=== PATIENT | female | born 1955 | race Caucasian/White ===

== ENCOUNTER → 2018-01-30 09:42 | Outpatient (CLI) | payer BC, SELFPAY ==
--- NOTE | 2018-01-30 | DI.RAD.S_ITS ---
PROCEDURE: XR CERVICAL SPINE 2V OR 3V INDICATIONS: LFT SIDE NECK PAIN TECHNIQUE: 3 view(s) of the cervical spine were acquired. COMPARISON: None. FINDINGS: Bones: Loss of normal cervical stenosis. No fractures or dislocations to the C7 level. The lateral masses of C1 appear intact on the odontoid view. No suspicious bony lesions. There is degenerative disc disease, moderate at C6-C7, and mild at C5-C6. Soft tissues: No prevertebral soft tissue swelling. IMPRESSION: 1. Degenerative disc disease in cervical spine. Dictated by: Narciso Ballesteros M.D. on 01/30/2018 at 10:58 Approved by: Narciso Ballesteros M.D. on 01/30/2018 at 11:00
== END ==
PROVIDERS: PCP Nurse Practitioner Family; Visit Provider Nurse Practitioner Family
DX: M50.322 Other cervical disc degeneration at C5-C6 level (principal)
CPT/HCPCS: 72040

== ENCOUNTER → 2018-02-23 14:10 | Outpatient (CLI) | payer BC, SELFPAY | PROVIDERS: PCP Nurse Practitioner Family; Visit Provider Nurse Practitioner Family | DX: M85.851 Other specified disorders of bone density and structure, right thigh (principal); Z78.0 Asymptomatic menopausal state; Z90.722 Acquired absence of ovaries, bilateral; Z85.42 Personal history of malignant neoplasm of other parts of uterus | CPT/HCPCS: 77080 ==

== ENCOUNTER → 2018-04-21 11:55 | Outpatient (CLI) | payer BC, SELFPAY ==
--- NOTE | 2018-04-21 | DI.MG.S_ITS ---
BILATERAL DIGITAL SCREENING MAMMOGRAM 3D/2D WITH CAD: 04/21/2018 CLINICAL: Routine screening. Family history of breast cancer. Comparison is made to exams dated: 11/07/2016 mammogram, 11/07/2015 mammogram, and 10/26/2014 mammogram - [facility] Current study was also evaluated with a Computer Aided Detection (CAD) system. No significant masses, calcifications, or other findings are seen in either breast. There has been no significant interval change. IMPRESSION: NEGATIVE There is no mammographic evidence of malignancy. A 1 year screening mammogram is recommended. This exam was interpreted at Station ID: [id number]. NOTE: For mammograms, a report in lay terms will be sent to the patient. Approximately 15% of breast malignancies will not be visualized mammographically. In the management of a palpable breast mass, a negative mammogram must not discourage biopsy of a clinically suspicious lesion. Electronically Signed By: Tete rosa/foreign:04/21/2018 15:48:15 letter sent: Normal Exam ACR BI-RADS Category 1: Negative 3341F
== END ==
PROVIDERS: PCP Nurse Practitioner Family; Visit Provider Nurse Practitioner Family
DX: Z12.31 Encounter for screening mammogram for malignant neoplasm of breast (principal); Z80.3 Family history of malignant neoplasm of breast
CPT/HCPCS: 77063; 77067

== ENCOUNTER → 2019-04-20 15:17 | Outpatient (CLI) | payer BC, SELFPAY ==
--- NOTE | 2019-04-20 | DI.RAD.S_ITS ---
PROCEDURE: XR ANKLE RT MIN 3V INDICATIONS: right akle pain TECHNIQUE: 3 views of the ankle were acquired. COMPARISON: None. FINDINGS: Bones: No fractures or dislocations. Ankle mortise is normally aligned. No suspicious bony lesions. Mild tibiotalar and mid foot joint narrowing with para-articular osteophyte formation. Soft tissues: No tibiotalar joint effusion. Achilles tendon appears normal. IMPRESSION: No acute fracture. No osseous lesion. If clinical suspicion and/orsymptoms persist, further assessment with repeat plainfilms, or advanced imaging (e.g., CT, MRI, or bone scan) may be helpful for further assessment. Dictated by: Lico WINTERS Interpreted: Kinsey Simmons MD on 04/20/2019 at 17:45 Approved by: Kinsey Simmons M.D. on 04/20/2019 at 18:38
--- NOTE | 2019-04-20 | DI.RAD.S_ITS ---
PROCEDURE: XR KNEE LT 3V INDICATIONS: left knee pain TECHNIQUE: 3 views of the knee were acquired. COMPARISON: None. FINDINGS: Bones: No fractures or dislocations. No suspicious bony lesions. Tricompartmental periarticular osteophyte formation. Soft tissues: No joint effusion. No suspicious soft tissue calcifications. IMPRESSION: Mild tricompartmental knee joint degeneration. Dictated by: Lico WINTERS Interpreted: Kinsey Simmons MD on 04/20/2019 at 17:45 Approved by: Kinsey Simmons M.D. on 04/20/2019 at 18:38
--- NOTE | 2019-04-20 | DI.RAD.S_ITS ---
PROCEDURE: XR KNEE RT 3V INDICATIONS: right knee pain TECHNIQUE: 3 views of the knee were acquired. COMPARISON: None. FINDINGS: Bones: No fractures or dislocations. No suspicious bony lesions. Tricompartmental periarticular osteophyte formation. Soft tissues: Small joint effusion. No suspicious soft tissue calcifications. IMPRESSION: Mild tricompartmental knee joint degeneration. Dictated by: Lico WINTERS Interpreted: Kinsey Simmons MD on 04/20/2019 at 17:46 Approved by: Kinsey Simmons M.D. on 04/20/2019 at 18:38
== END ==
PROVIDERS: PCP Nurse Practitioner Family; Visit Provider Nurse Practitioner Family
DX: M25.561 Pain in right knee (principal); M25.562 Pain in left knee; M17.0 Bilateral primary osteoarthritis of knee; M25.571 Pain in right ankle and joints of right foot
CPT/HCPCS: 73562; 73610

== ENCOUNTER → 2019-05-07 11:50 | Outpatient (CLI) | payer BC, SELFPAY ==
--- NOTE | 2019-05-07 | DI.MG.S_ITS ---
BILATERAL DIGITAL SCREENING MAMMOGRAM 3D/2D WITH CAD: 05/07/2019 CLINICAL: Routine screening. Family history of breast cancer. Comparison is made to exams dated: 04/21/2018 mammogram - [facility], 11/07/2016 mammogram, and 11/07/2015 mammogram - [facility] Current study was also evaluated with a Computer Aided Detection (CAD) system. There are benign calcifications in both breasts. There also is a biopsy clip in the left breast. No significant masses, calcifications, or other findings are seen in either breast. There has been no significant interval change. IMPRESSION: There is no mammographic evidence of malignancy. A 1 year screening mammogram is recommended. This exam was interpreted at Station ID: [id number]. NOTE: For mammograms, a report in lay terms will be sent to the patient. Approximately 15% of breast malignancies will not be visualized mammographically. In the management of a palpable breast mass, a negative mammogram must not discourage biopsy of a clinically suspicious lesion. Electronically Signed By: Addison perez/foreign:05/07/2019 13:09:27 letter sent: Normal Exam ACR BI-RADS Category 2: Benign Finding(s) 3342F
== END ==
PROVIDERS: PCP Nurse Practitioner Family; Visit Provider Nurse Practitioner Family
DX: Z12.31 Encounter for screening mammogram for malignant neoplasm of breast (principal); Z80.3 Family history of malignant neoplasm of breast
CPT/HCPCS: 77063; 77067

== ENCOUNTER → 2020-05-31 16:44 | Outpatient (CLI) | payer BC, MEDICARE, SELFPAY ==
--- NOTE | 2020-05-31 16:48 | DI.MG.S_ITS ---
BILATERAL DIGITAL SCREENING MAMMOGRAM 3D/2D WITH CAD: 05/31/2020 CLINICAL: Routine screening. Family history of breast cancer. Comparison is made to exams dated: 05/07/2019 mammogram, 04/21/2018 mammogram - [facility], and 11/07/2016 mammogram - [facility] Current study was also evaluated with a Computer Aided Detection (CAD) system. There are benign calcifications in both breasts. There also is a biopsy clip in the left breast. No significant masses, calcifications, or other findings are seen in either breast. There has been no significant interval change. IMPRESSION: BENIGN There is no mammographic evidence of malignancy. A 1 year screening mammogram is recommended. This exam was interpreted at Station ID: [id number]. NOTE: For mammograms, a report in lay terms will be sent to the patient. Approximately 15% of breast malignancies will not be visualized mammographically. In the management of a palpable breast mass, a negative mammogram must not discourage biopsy of a clinically suspicious lesion. Electronically Signed By: Aleks simon/foreign:06/01/2020 07:37:43 letter sent: Normal Exam ACR BI-RADS Category 2: Benign Finding(s) 3342F
== END ==
PROVIDERS: PCP Nurse Practitioner Family; Referring Provider Internal Medicine; Visit Provider Internal Medicine
DX: Z12.31 Encounter for screening mammogram for malignant neoplasm of breast (principal); Z80.3 Family history of malignant neoplasm of breast
CPT/HCPCS: 77063; 77067

== ENCOUNTER → 2021-01-05 09:15 | Outpatient (CLI) | payer MEDICARE, BC, SELFPAY ==
--- NOTE | 2021-01-05 | DI.RAD.S_ITS ---
PROCEDURE: XR HIP W PEL IF DONE RT 2V INDICATIONS: RIGHT HIP AND RIGHT KNEE PAIN TECHNIQUE: AP pelvis with lateral view(s) of the right hip(s). COMPARISON: None. FINDINGS: Bones: [id number] bilateral hip joint osteoarthritic changes are seen more prominent on the right side. No evidence of avascular necrosis of femoral head. No fractures or dislocations. Pelvic ring appears intact. No suspicious bony lesions. Degenerative disc disease in visualized lower lumbar spine is seen. Soft tissues: The visualized bowel gas pattern is normal. No suspicious soft tissue calcifications. IMPRESSION: Right worse than left bilateral hip joint osteoarthritis. No fracture or dislocation. No evidence of avascular necrosis. Dictated by: Sumit Arnold M.D. on 01/05/2021 at 10:56 Approved by: Sumit Arnold M.D. on 01/05/2021 at 10:56
--- NOTE | 2021-01-05 | DI.RAD.S_ITS ---
PROCEDURE: XR KNEE RT 3V INDICATIONS: RIGHT HIP AND RIGHT KNEE PAIN TECHNIQUE: 3 views of the knee were acquired. COMPARISON: [facility], CR, XR KNEE LT 3V, 04/20/2019, 15:25. FINDINGS: Bones: No fractures or dislocations. No suspicious bony lesions. Mild narrowing of the medial femorotibial joints bilaterally and tricompartmental periarticular osteophyte formation. Soft tissues: Small right joint effusion. No suspicious soft tissue calcifications. IMPRESSION: Bilateral knee joint degeneration, most notably involving the medial femorotibial joints. Dictated by: Lico Navarro [facility] Interpreted: Sumit Arnold MD on 01/05/2021 at 13:07 Transcribed by: SP on 01/05/2021 at 13:08 Approved by: Sumit Arnold M.D. on 01/05/2021 at 16:02
== END ==
PROVIDERS: PCP Internal Medicine; Referring Provider Internal Medicine; Visit Provider Internal Medicine
DX: M25.551 Pain in right hip (principal); M25.561 Pain in right knee; M16.0 Bilateral primary osteoarthritis of hip; M17.0 Bilateral primary osteoarthritis of knee
CPT/HCPCS: 73502; 73562

== ENCOUNTER → 2021-07-11 09:59 | Outpatient (CLI) | payer MEDICARE, BC, SELFPAY ==
--- NOTE | 2021-07-11 | DI.MG.S_ITS ---
BILATERAL DIGITAL SCREENING MAMMOGRAM 3D/2D WITH CAD: 07/11/2021 CLINICAL: Routine screening. Family history of breast cancer. Comparison is made to exams dated: 05/31/2020 mammogram, 05/07/2019 mammogram, 04/21/2018 mammogram - [facility], and 11/07/2016 mammogram - [facility] Current study was also evaluated with a Computer Aided Detection (CAD) system. There are benign calcifications in both breasts. No significant masses, calcifications, or other findings are seen in either breast. There has been no significant interval change. IMPRESSION: BENIGN There is no mammographic evidence of malignancy. A 1 year screening mammogram is recommended. This exam was interpreted at Station ID: [id number]. NOTE: For mammograms, a report in lay terms will be sent to the patient. Approximately 15% of breast malignancies will not be visualized mammographically. In the management of a palpable breast mass, a negative mammogram must not discourage biopsy of a clinically suspicious lesion. Electronically Signed By: Jared resendiz/foreign:07/11/2021 18:47:51 letter sent: Normal Exam ACR BI-RADS Category 2: Benign Finding(s) 3342F
== END ==
PROVIDERS: PCP Internal Medicine; Referring Provider Internal Medicine; Visit Provider Internal Medicine
DX: Z12.31 Encounter for screening mammogram for malignant neoplasm of breast (principal); Z80.3 Family history of malignant neoplasm of breast; Z78.0 Asymptomatic menopausal state; M85.851 Other specified disorders of bone density and structure, right thigh
CPT/HCPCS: 77063; 77067; 77080

== ENCOUNTER → 2022-02-04 14:33 | Outpatient (CLI) | payer MEDICARE, BC, SELFPAY ==
--- NOTE | 2022-02-04 | DI.RAD.S_ITS ---
PROCEDURE: XR WRIST RT MIN 3V INDICATIONS: RIGHT WRIST PAIN TECHNIQUE: Four views of the wrist were acquired. COMPARISON: None. FINDINGS: Bones: Degenerative changes of the 1st carpometacarpal joint and triscaphe joint consistent with osteoarthritis. No fractures or dislocations. No suspicious bony lesions. Scaphoid view: No fracture Soft tissues: No suspicious soft tissue calcifications. IMPRESSION: Degenerative changes of the 1st carpometacarpal joint and triscaphe joint consistent with osteoarthritis. Dictated by: Daljit Costa M.D. on 02/04/2022 at 15:01 Approved by: Daljit Costa M.D. on 02/04/2022 at 15:04
== END ==
PROVIDERS: PCP Internal Medicine; Referring Provider Internal Medicine; Visit Provider Internal Medicine
DX: M25.531 Pain in right wrist (principal)
CPT/HCPCS: 73110

== ENCOUNTER → 2022-08-21 08:03 | Outpatient (CLI) | payer MEDICARE, BC, SELFPAY ==
--- NOTE | 2022-08-21 | DI.MG.S_ITS ---
BILATERAL DIGITAL SCREENING MAMMOGRAM 3D/2D WITH CAD: 08/21/2022 CLINICAL: Routine screening. Family history of breast cancer. Comparison is made to exams dated: 07/11/2021 mammogram, 05/31/2020 mammogram, and 05/07/2019 mammogram - [facility]. There are scattered areas of fibroglandular density in both breasts (category b / 25%-50% glandular tissue). Current study was also evaluated with a Computer Aided Detection (CAD) system. There are benign calcifications in both breasts. No significant masses, calcifications, or other findings are seen in either breast. There has been no significant interval change. IMPRESSION: BENIGN There is no mammographic evidence of malignancy. A 1 year screening mammogram is recommended. Based on the Tyrer Cuzick model (a risk assessment model) the patient's lifetime risk is 7.1% and her 10 year risk is 3.7%. According to the ACR, ACS, and NCCN guidelines, an annual breast MRI exam along with mammogram is recommended if the patient's lifetime risk is 20% or greater. This exam was interpreted at Station ID: [id number]. NOTE: For mammograms, a report in lay terms will be sent to the patient. Approximately 15% of breast malignancies will not be visualized mammographically. In the management of a palpable breast mass, a negative mammogram must not discourage biopsy of a clinically suspicious lesion. Electronically Signed By: Tete rosa/foreign:08/21/2022 16:23:00 letter sent: Normal Exam ACR BI-RADS Category 2: Benign Finding(s) 3342F
== END ==
PROVIDERS: PCP Internal Medicine; Referring Provider Internal Medicine; Visit Provider Internal Medicine
DX: Z12.31 Encounter for screening mammogram for malignant neoplasm of breast (principal); Z80.3 Family history of malignant neoplasm of breast
CPT/HCPCS: 77063; 77067

== ENCOUNTER → 2022-11-04 16:42 | Outpatient (CLI) | payer MEDICARE, BC, SELFPAY ==
--- NOTE | 2022-11-04 | DI.US.S_ITS ---
PROCEDURE: US ABDOMEN LIMITED INDICATIONS: ELEVATED LIVER FUNCTION TESTS TECHNIQUE: Real-time scanning was performed of the abdominal and retroperitoneal organs, with image documentation. COMPARISON: None. FINDINGS: Liver: Liver is normal in size . Increased liver parenchymal echotexture is seen. Main portal vein is patent and show normal hepatopetal flow. Gallbladder: Gallbladder is within normal limits. Biliary ducts: Intrahepatic bile ducts are non-dilated. Extrahepatic bile duct caliber measures 3.8 mm. Normal is 6-7 mm or less in diameter, or 10 mm or less post-cholecystectomy. Pancreas: Visualized portions of the pancreas are sonographically normal. Miscellaneous: No free abdominal fluid. IMPRESSION: Hepatic steatosis. Rest of the exam is unremarkable. Dictated by: Sumit Arnold M.D. on 11/05/2022 at 12:15 Approved by: Sumit Arnold M.D. on 11/05/2022 at 12:16
== END ==
PROVIDERS: PCP Internal Medicine; Referring Provider Internal Medicine; Visit Provider Internal Medicine
DX: K76.0 Fatty (change of) liver, not elsewhere classified (principal); R79.89 Other specified abnormal findings of blood chemistry
CPT/HCPCS: 76705

== ENCOUNTER 2023-06-30 08:44 | Emergency (ER) | payer MEDICARE, BC, SELFPAY ==
[2023-06-30 08:48] VITALS: BP 205/94; PULSE 90; O2SAT 96
[2023-06-30 08:51] VITALS: BP 205/94; PULSE 75; RESP 18; TEMP 36.2; O2SAT 95; BMI 32.3
[2023-06-30 09:00] VITALS: PULSE 76; O2SAT 94
[2023-06-30 09:01] VITALS: BP 189/102; PULSE 76; O2SAT 95
--- NOTE | 2023-06-30 09:17 | ED.GENADULT ---
HPI - General Adult General Chief complaint: Urogenital-Female Stated complaint: needs iv antibiotics for uti Time Seen by Provider: 06/30/23 08:51 Source: patient Mode of arrival: Ambulatory Limitations: no limitations History of Present Illness HPI narrative: 68-year-old female with history of hypertension presents with recent UTI symptoms and left flank pain. Patient states symptoms started in the past week. Started in the left lower abdomen have moved to the left flank. She has had urinary frequency with incomplete sense of emptying but no hematuria, no dysuria. She states she had a UTI many years ago but does not recall how it felt. She states pain was sort of gradual onset. Occasionally a little bit more intense 1st thing in the morning but states it has overall been mild. She denies any recent fevers. No chest pain or shortness of breath. No nausea or vomiting. States normal stools. No vaginal bleeding. Patient states was started on Macrobid on Friday and has not had any improvement. Was told by her primary care to come be evaluated. Patient states has had prior hysterectomy. States benazepril is her only daily medication. No tobacco, occasional alcohol, no recreational drugs. Related Data Previous Rx's Medication Instructions Recorded ciprofloxacin HCl 500 mg tablet 500 mg PO Q12H #20 tabs 06/30/23 Allergies Allergy/AdvReac Type Severity Reaction Status Date / Time codeine Allergy Verified 06/30/23 08:51 morphine Allergy Verified 06/30/23 08:51 Sulfa (Sulfonamide Allergy Verified 06/30/23 08:51 Antibiotics) Review of Systems Review of Systems ROS Unobtainable: All systems reviewed & are unremarkable except as noted in HPI and below Patient History Social History Smoking Status: Never smoker Smoking Status: Never smoker alcohol intake frequency: holidays/special occasions only Substance Use Type: does not use Exam Narrative Exam Narrative: GENERAL: Alert and oriented x three, female in mild distress HEENT: Head normocephalic, atraumatic, EOMI, pupils reactive, face symmetric, moist mucous membranes NECK: Supple, full range of motion CARDIOVASCULAR: Regular rate and rhythm without murmurs, rubs or gallops. RESPIRATORY: Breath sounds equal bilaterally, no wheezes rales or rhonchi. ABDOMEN: Soft, nontender. Normoactive bowel sounds all 4 quadrants. No guarding or rebound, rigidity, no mass : Mild left CVA tenderness, no right CVA tenderness EXTREMITIES: Normal range of motion, no clubbing or edema. Neurovascularly intact NEUROLOGICAL: Cranial nerves II through XII grossly intact. Moving all extremities SKIN: Warm, dry, no petechiae, no rashes or lesions. Initial Vital Signs Initial Vital Signs: Vital Signs Pulse Rate 90 06/30/23 08:48 Blood Pressure 205/94 H 06/30/23 08:48 Pulse Oximetry 96 06/30/23 08:48 Course Orders Ordered: ED Orders 06/30/23 09:26 Urinalysis and Microscopic Stat Urine Culture Stat Vital Signs Vital signs: Vital Signs - 8 hr 06/30/23 08:48 06/30/23 08:48 06/30/23 08:51 Temperature 97.1 F L Pulse Rate 90 75 Respiratory Rate 18 Blood Pressure 205/94 H 205/94 H Pulse Oximetry 96 95 Oxygen Delivery Method Room Air 06/30/23 09:00 06/30/23 09:01 06/30/23 09:01 Temperature Pulse Rate 76 76 Respiratory Rate Blood Pressure 189/102 H Pulse Oximetry 94 95 Oxygen Delivery Method Medical Decision Making Lab Data Labs: Lab Results 06/30/23 Range/Units 09:26 Urine Color [place] Urine Appearance Clear Urine pH TNP Ur Specific [place] TNP Urine Protein TNP Urine Glucose (UA) TNP Urine Ketones TNP Urine Occult Blood TNP Urine Nitrate TNP Urine Bilirubin TNP Urine Urobilinogen TNP Ur Leukocyte Esterase TNP Urine RBC None seen (0-5/HPF) Urine WBC 1-5/hpf (0-5/HPF) Ur Squamous Epith Cells 1-5 /hpf (0-5/HPF) Urine Bacteria None seen (None) Ur Culture Indicated? Specimen cultured Vol Urine Centrifuged 10ml (spun) MDM Narrative Medical decision making narrative: 68-year-old female with flank pain, frequency and sense of incomplete emptying has been on Macrobid but has not had improvement in symptoms has also been on azo. Patient's urine does not show any blood which would be consistent with kidney stones. Does show a few white cells, UA somewhat altered secondary to azo. Discussed with patient we will change antibiotic with return precautions. She is hypertensive, no signs of sepsis with vitals today. Patient is otherwise very well-appearing overall benign exam with hypertension but no vitals that suggest sepsis. Patient had an outside urine done urine culture shows mixed artemio from several days ago. Urinalysis today was sent for culture as well. Discharge Plan Departure Patient Disposition: Home Clinical Impression: Pyelonephritis Instructions: DI for Kidney Infection Activity Restrictions/Additional Instructions: Please follow up for recheck if you are not having improvement of symptoms. Take oral antibiotics until completed. Prescription sent to [facility] in [place]. Please return for fevers, new or worsening abdominal back or flank pain, persistent vomiting, lightheadedness or passing out or other new or concerning changes. Prescriptions: New ciprofloxacin HCl 500 mg tablet 500 mg PO Q12H Qty: 20 0RF Referrals: Jyothi Rivers ARNP [Primary Care Provider] - Stand Alone Forms: Patient Portal/API
[2023-06-30 09:32] LABS: Appearance Urine UA Clear; Color Urine UA ORANGE
[2023-06-30 09:33] LABS: Urine Volume 10mL (spun)
[2023-06-30 09:36] LABS: Bacteria Urine None Seen; Culture Indicated Urine Specimen Cultured; RBC Urine None Seen (0-5/HPF); Squamous Epithelial Cell Urine 1-5 /HPF (0-5/HPF); WBC Urine 1-5/HPF (0-5/HPF)
== END 2023-06-30 09:50 | disposition home or self-care (01) ==
PROVIDERS: Emergency Provider Emergency Medicine; PCP Internal Medicine
DX: N12 Tubulo-interstitial nephritis, not specified as acute or chronic (principal)
CPT/HCPCS: 81001; 87086; 99281; 99283

== ENCOUNTER → 2023-08-08 07:37 | Outpatient (CLI) | payer MEDICARE, BC, SELFPAY ==
--- NOTE | 2023-08-08 07:39 | DI.US.S_ITS ---
PROCEDURE: US RENAL COMPLETE INDICATIONS: LEFT FLANK PAIN TECHNIQUE: Real-time scanning was performed of the kidneys and bladder, with image documentation. COMPARISON: [facility], , US ABDOMEN LIMITED, 11/04/2022, 17:02. FINDINGS: Kidneys: Kidneys are normal in size. Right kidney measures 11 cm long; left kidney measures 11.7 cm long. Right renal cortical thickness is 1.1 cm; left renal cortical thickness is 1.1 cm. Renal cortical echotexture is normal. No hydronephrosis or nephrolithiasis. No suspicious solid mass lesions. Bladder: Pre-void bladder volume is 167 mL. Post-void residual is 15 mL. Pre-void images demonstrate no intraluminal masses or stones. On pre-void images, both ureteral jets are noted with color Doppler interrogation. (Of note, ureteral jets may not be detectable in up to 25% of cases due to insufficient differences in specific gravity between ureteral and bladder urine). Miscellaneous: No free pelvic fluid. Increased echogenicity of the liver. IMPRESSION: 1. No hydronephrosis. 2. No significant postvoid residual. 3. Increased hepatic echogenicity most consistent with hepatic steatosis. Other forms of hepatocellular disease could have similar appearance. If clinically indicated please consider CT abdomen pelvis for further evaluation. Dictated by: Jared Lopez M.D. on 08/08/2023 at 12:24 Approved by: Jared Lopez M.D. on 08/08/2023 at 12:28
== END ==
PROVIDERS: PCP Internal Medicine; Referring Provider Internal Medicine; Visit Provider Internal Medicine
DX: R10.9 Unspecified abdominal pain (principal)
CPT/HCPCS: 76770

== ENCOUNTER → 2023-08-11 12:32 | Outpatient (CLI) | payer MEDICARE, BC, SELFPAY ==
--- NOTE | 2023-08-11 | DI.RAD.S_ITS ---
PROCEDURE: XR HIP W PEL IF DONE LT 2V INDICATIONS: LEFT HIP PAIN TECHNIQUE: 2 views of the hip were acquired. COMPARISON: [facility], CR, XR HIP W PEL IF DONE RT 2V, 01/05/2021, 9:29. FINDINGS: Bones: No fractures or dislocations. The visualized pelvic ring appears intact. Mild bilateral degenerative joint disease of the hips noted. Soft tissues: No suspicious soft tissue calcifications or masses. IMPRESSION: No acute bony abnormality. Dictated by: Marcos Nuñez M.D. on 08/11/2023 at 13:22 Approved by: Marcos Nuñez M.D. on 08/11/2023 at 13:26
== END ==
PROVIDERS: PCP Internal Medicine; Referring Provider Internal Medicine; Visit Provider Internal Medicine
DX: M25.552 Pain in left hip (principal); M53.3 Sacrococcygeal disorders, not elsewhere classified; M16.0 Bilateral primary osteoarthritis of hip
CPT/HCPCS: 73502

== ENCOUNTER → 2023-08-25 08:17 | Outpatient (CLI) | payer MEDICARE, BC, SELFPAY ==
--- NOTE | 2023-08-25 | DI.MG.S_ITS ---
BILATERAL DIGITAL SCREENING MAMMOGRAM 3D/2D WITH CAD: 08/25/2023 CLINICAL: Routine screening. Family history of breast cancer. Comparison is made to exams dated: 08/21/2022 mammogram, 07/11/2021 mammogram, and 05/31/2020 mammogram - [facility]. There are scattered areas of fibroglandular density in both breasts (category b / 25%-50% glandular tissue). Current study was also evaluated with a Computer Aided Detection (CAD) system. There are benign calcifications in both breasts. No significant masses, calcifications, or other findings are seen in either breast. There has been no significant interval change. IMPRESSION: BENIGN There is no mammographic evidence of malignancy. A 1 year screening mammogram is recommended. Based on the Tyrer Cuzick model (a risk assessment model) the patient's lifetime risk is 8.7% and her 10 year risk is 4.8%. According to the ACR, ACS, and NCCN guidelines, an annual breast MRI exam along with mammogram is recommended if the patient's lifetime risk is 20% or greater. This exam was interpreted at Station ID: [id number]. NOTE: For mammograms, a report in lay terms will be sent to the patient. Approximately 15% of breast malignancies will not be visualized mammographically. In the management of a palpable breast mass, a negative mammogram must not discourage biopsy of a clinically suspicious lesion. Electronically Signed By: Tete rosa/foreign:08/25/2023 15:49:47 letter sent: Normal Exam ACR BI-RADS Category 2: Benign Finding(s) 3342F
== END ==
PROVIDERS: PCP Internal Medicine; Referring Provider Internal Medicine; Visit Provider Internal Medicine
DX: Z12.31 Encounter for screening mammogram for malignant neoplasm of breast (principal); Z80.3 Family history of malignant neoplasm of breast; R92.323 Mammographic fibroglandular density, bilateral breasts
CPT/HCPCS: 77063; 77067

== ENCOUNTER → 2023-12-29 10:44 | Outpatient (CLI) | payer MEDICARE, BC, SELFPAY ==
--- NOTE | 2023-12-29 10:47 | DI.RAD.S_ITS ---
PROCEDURE: XR LUMBAR SPINE 2-3V INDICATIONS: LOW BACK PAIN TECHNIQUE: 3 views of the lumbar spine were acquired. COMPARISON: None. FINDINGS: Bones: 5 ddi-ecd-doycnvv vertebrae are present. Convex right curvature of the spine, centered at T12-L1. No vertebral body compression fractures. No suspicious bony lesions. Moderate disc height loss at L2-3, L3-4. Mild disc height loss at remaining levels. Facet arthrosis of L3 through S1. Soft tissues: Overlying bowel gas pattern is normal. No suspicious soft tissue calcifications. IMPRESSION: Mild to moderate, multilevel degenerative disc disease and lower lumbar facet arthrosis. Dictated by: Shailesh Lynne M.D. on 12/29/2023 at 14:40 Approved by: Shailesh Lynne M.D. on 12/29/2023 at 14:40
== END ==
PROVIDERS: PCP Internal Medicine; Referring Provider Internal Medicine; Visit Provider Internal Medicine
DX: M47.816 Spondylosis without myelopathy or radiculopathy, lumbar region (principal); M47.817 Spondylosis without myelopathy or radiculopathy, lumbosacral region; M51.36 Other intervertebral disc degeneration, lumbar region; M54.50 Low back pain, unspecified; M53.3 Sacrococcygeal disorders, not elsewhere classified; M25.552 Pain in left hip
CPT/HCPCS: 72100

== ENCOUNTER → 2024-05-13 07:33 | Outpatient (CLI) | payer MEDICARE, BC, SELFPAY ==
--- NOTE | 2024-05-13 07:35 | DI.MRI.S_ITS ---
PROCEDURE: MR ABDOMEN LIVER PROTOCOL INDICATIONS: NAFLD / ELEVATED LFT'S TECHNIQUE: Coronal HASTE, axial 2D FLASH in- and jia-ae-hfphw; axial breath-hold T2 FSE. Dynamic axial VIBE during the administration of contrast; post-contrast coronal VIBE or 2D FLASH with fat saturation from the hepatic dome to the iliac crests. Optional diffusion weighted imaging and ADC may be performed. COMPARISON: None. FINDINGS: Image quality: Diagnostic. Lung bases: Unremarkable. Liver: Moderate to severe patent steatosis (PDFF of 23%) Gallbladder: No gallstones or wall thickening. Biliary ducts: No biliary dilation. Pancreas: No ductal dilation. Spleen: Size is within normal limits. Adrenal Glands: No adrenal nodules. Kidneys and Ureters: No hydronephrosis. No solid mass. No complex renal cystic lesion which requires follow up. Stomach and Bowel: Normal colonic caliber, without significant wall thickening. Colonic diverticulosis without evidence of diverticulitis. Peritoneum: No abnormal intraperitoneal fluid. No free air. Ventral Wall: No hernia. Abdominal Nodes: No retroperitoneal or mesenteric adenopathy by size criteria. Vessels: Aorta and inferior vena cava are normal in size. Bones: No aggressive osseous abnormality. IMPRESSION: Moderate to severe hepatic steatosis (PDFF of 23%). In the absence of alcohol use or other confounding factors, elevated LFTs may indicate ftihhocxa-mbgouwdnkbi-xjojjsprwh steatohepatitis (MASH). Dictated by: Shailesh Lynne M.D. on 05/13/2024 at 10:45 Approved by: Shailesh Lynne M.D. on 05/13/2024 at 10:49
== END ==
PROVIDERS: PCP Internal Medicine; Referring Provider Internal Medicine; Visit Provider Internal Medicine
DX: K76.0 Fatty (change of) liver, not elsewhere classified (principal); R79.89 Other specified abnormal findings of blood chemistry; K57.90 Diverticulosis of intestine, part unspecified, without perforation or abscess without bleeding
CPT/HCPCS: 74183; A9579

== ENCOUNTER → 2024-05-18 11:37 | Outpatient (ROUT) | payer MEDICARE, BC, SELFPAY ==
[2024-05-18 11:58] LABS: Alanine Aminotransferase 24 IU/L (<35); Albumin 4.1 g/dL (3.5-5.0); Albumin Globulin Ratio 1.6 (1.0-2.8); Alkaline Phosphatase 73 U/L (38-126); Aspartate Aminotransferase 31 IU/L (14-36); BUN Creatinine Ratio 21.9 (6-22); Bilirubin Total 1.8 mg/dL (0.2-1.3); Blood Urea Nitrogen 23 mg/dL (7-17); Calcium 9.5 mg/dL (8.4-10.2); Carbon Dioxide 25 mmol/L (22-32); Chloride 105 mmol/L (98-107); Estimated Glomerular Filt Rate 58 mL/min (>60); Globulin 2.6 g/dL (1.7-4.1); Glucose 96 mg/dL (80-110); HEMOLYSIS < 15 (0-50); Potassium 3.9 mmol/L (3.4-5.1); Sodium 137 mmol/L (137-145); Total Protein 6.7 g/dL (6.3-8.2)
== END ==
PROVIDERS: PCP Internal Medicine; Visit Provider Internal Medicine
DX: K76.0 Fatty (change of) liver, not elsewhere classified (principal); R79.89 Other specified abnormal findings of blood chemistry
CPT/HCPCS: 80053

== ENCOUNTER → 2024-09-02 07:54 | Outpatient (CLI) | payer MEDICARE, BC, SELFPAY ==
--- NOTE | 2024-09-02 07:56 | DI.MG.S_ITS ---
MM screening mammo BI: 09/02/2024. BI-RADS: 2 CLINICAL: 69-year old female for bilateral screening mammogram. Tyrer-Cuzick lifetime risk of 8.2%. Current reported family history of breast cancer: sister and second sister. The patient had a prior left breast biopsy. PRIOR EXAMS 08/25/2023, 08/21/2022, 07/11/2021, 05/31/2020, 05/07/2019, 04/21/2018. MAMMOGRAPHY TECHNIQUE: 2D and 3D (tomosynthesis) digital mammographic views obtained, with additional images as needed for full coverage. Current study was also evaluated with a Computer Aided Detection (CAD) system. DENSITY B. There are scattered areas of fibroglandular density. MAMMOGRAPHY FINDINGS Right: No suspicious mass, asymmetry, microcalcification, or other abnormality seen. Left: Biopsy marker present on the left. There are no suspicious masses, calcifications, or other findings in the breast. IMPRESSION: Right * No evidence of malignancy. Left * No evidence of malignancy with benign findings. RECOMMENDATIONS Bilateral * Annual screening mammography. OVERALL ASSESSMENT CATEGORY BI-RADS-2: Benign. The [employer] recommends annual screening mammography beginning at age 40 for women with average risk of breast cancer. ELECTRONICALLY SIGNED: Susan Lopez M.D. on 09/04/2024 at 09:21:29 AM PT Interpreting Station ID: [id number]
== END ==
PROVIDERS: PCP Family Medicine; Referring Provider Family Medicine; Visit Provider Family Medicine
DX: Z12.31 Encounter for screening mammogram for malignant neoplasm of breast (principal); Z80.3 Family history of malignant neoplasm of breast
CPT/HCPCS: 77063; 77067

== ENCOUNTER → 2025-03-21 14:04 | Outpatient (CLI) | payer MEDICARE, BC, SELFPAY ==
--- NOTE | 2025-03-21 14:06 | DI.CT.S_ITS ---
PROCEDURE: CT SINUS SCREEN WO CON
== END ==
PROVIDERS: PCP Family Medicine; Referring Provider Family Medicine; Visit Provider Otolaryngology
DX: J32.4 Chronic pansinusitis (principal); R51.9 Headache, unspecified
CPT/HCPCS: 70486